=== PATIENT | male | born 1945 | race Caucasian/White ===

== ENCOUNTER 2019-07-12 12:35 | Inpatient (IN) ==
[2019-07-12 13:38] LABS: BASO# 0.09 X1000 (0.0-0.2); BASO% 1.1 % (0.0-0.8); EOS# 0.23 X1000 (0.0-0.7); EOS% 2.9 % (0.0-10.0); HEMOGLOBIN 15.8 g/dL (14.0-18.0); IMM GRAN# 0.03 X1000 (0.0-0.04); IMM GRAN% 0.4 % (0.0-0.5); LYMPH# 1.84 X1000 (1.2-3.4); MCH 30.9 PG (27-31); MCHC 34.3 g/dL (33-37); MCV 89.8 FL (81-99); MONO# 0.81 X1000 (0.11-0.59); MONO% 10.1 % (1.7-9.3); MPV 9.8 FL (7.4-10.4); NEUT# 4.99 X1000 (1.4-6.5); NEUT% 62.5 % (42.2-75.2); PLT 279 X1000 (130-400); RBC 5.12 XMIL (4.7-6.1); WBC 7.99 X1000 (4.8-10.8)
--- NOTE | 2019-07-12 13:47 | Diag Imaging Result Doc PS360 ---
EXAM: CHEST-2 VIEWS HISTORY: chest pain TECHNIQUE: Two views COMPARISON: None. FINDINGS: The lungs are well expanded. The heart is not enlarged. There are sternal wires. The vessels are not distended. There are no infiltrates. No pleural effusions. IMPRESSION: No acute abnormality. Electronically signed by Tal Muñoz 07/12/2019 1:45 PM
[2019-07-12 13:49] LABS: INR 1.02; PROTIME 13.5 Seconds (11.0-16.0)
[2019-07-12 13:50] LABS: PTT 27.8 Seconds (22.3-41.8)
[2019-07-12 14:00] LABS: AGAP 10; ALB/GLOB RATIO 1.5; ALBUMIN 4.3 g/dL (3.5-5.0); ALKALINE PHOSPHATASE 83 U/L (32-122); BUN 13 mg/dL (8-22); CALCIUM 9.7 mg/dL (8.8-10.2); CHLORIDE 104 mmol/L (98-107); CK PROFILE 80 U/L (24-204); COSMO 282; CREATININE 0.7 mg/dL (0.7-1.2); ESTIMATED GFR > 60; GLUCOSE 180 mg/dL (70-104); GOT 13 U/L (10-34); GPT 20 U/L (10-44); POTASSIUM 4.3 mmol/L (3.5-5.1); SODIUM 139 mmol/L (136-145); TCO2 25 mmol/L (25-35); TOTAL PROTEIN 7.1 g/dL (6.3-8.3)
--- NOTE | 2019-07-12 15:10 | PROVIDER DOCUMENTATION ---
HPI-General Adult - General Chief Complaint: Chest Pain Stated Complaint: CP HEART PT Time Seen by Provider: 07/12/19 13:16 Source: patient Allergies/Adverse Reactions: Patient Allergies Allergy/AdvReac Type Severity Reaction Status Date / Time No Known Allergies Allergy Verified 07/12/19 13:28 Home Medications: Home Medication List Medication Instructions Recorded Confirmed Last Taken Type Aspirin 800 mg PO BID 03/27/13 07/12/19 03/27/13 06:30 History Brinzolamide/Brimonidine Tart 8 ml OP BID 03/27/13 07/12/19 03/27/13 08:00 History [Simbrinza 1%-0.2% Eye Drops] Carvedilol [Coreg] 12.5 mg PO BID 03/27/13 07/12/19 03/27/13 06:30 History [employer]-3 Fatty Acids/Fish Oil [Cvs 1 each PO DAILY 03/27/13 07/12/19 03/23/13 08:00 History Fish Oil 1,200 mg Softgel] Valsartan [Diovan] 320 mg PO DAILY 03/27/13 07/12/19 03/27/13 06:30 History Levothyroxine [Synthroid] 75 microgm PO DAILY 07/12/19 07/12/19 Unknown History Metformin [Glucophage] 500 mg PO BID CC 07/12/19 07/12/19 Unknown History Simvastatin 1 tab PO QHS 07/12/19 07/12/19 Unknown History - History of Present Illness -Gen Adult Nature of Presenting Problems: THis is a 73 yo male with a h/o CAD, HTN and Atrial flutter. He underwent successful DCCV in for atrial flutter and denies a recurrence until today. He reports chest tightness, palpitations, shortness of breath and feeling weak and dizzy. He reports a HR in the 160s at this time. Pt reports taking 1825mg Aspirin prior to coming to ER - 825 mg daily am dose, then he chewed 500mg ASA with 1 NTG twice before coming to ER. Location of Pain/Injury: reports: none Review of Systems - Adult - REVIEW OF SYSTEMS - ADULT Constitutional: reports: no symptoms reported. denies: fever, fatique, night sweats Eyes: reports: no symptoms reported Ears, Nose, Mouth & Throat: reports: no symptoms reported Cardiovascular: reports: no symptoms reported, see HPI Respiratory: reports: no symptoms reported. denies: cough, pleurisy, shortness of breath, wheezing Gastrointestinal: reports: no symptoms reported. denies: abdominal pain, constipation, diarrhea, nausea, vomiting Genitourinary: reports: no symptoms reported Musculoskeletal: reports: no symptoms reported Integumentary: reports: no symptoms reported Neurological: reports: no symptoms reported Psychiatric: reports: no symptoms reported Endocrine: reports: no symptoms reported Hematologic/Lymphatic: reports: no symptoms reported Allergic/Immunologic: reports: no symptoms reported All Other Systems: Reviewed and Negative Past History - Adult - PAST MEDICAL HISTORY-ADULT Review of Records: reports: Old Records Reviewed, Nursing Assessment Review, Medications Reviewed, Social history reviewed & non-contributory. Major Childhood Illnesses: reports: denies history Cardiovascular: reports: CAD, HTN, [place] Respiratory: reports: denies history Gastrointestinal: reports: denies history Obstetrical/Gynecological: reports: denies history Genitourinary: reports: denies history Musculoskeletal: reports: denies history Neurological: reports: denies history Endocrine/Immune: reports: Diabetes, thyroid disorder Diabetes Type: Type 2 Other Conditions: reports: denies history - PRIOR SURGERIES/PROCEDURES Surgical/Procedure History: reports: CABG - IMMUNIZATION STATUS Childhood Immunizations: UTD, See Nurse Assessment Flu Vaccine: UTD - FAMILY HISTORY Family History: diabetes, HTN - SOCIAL HISTORY Smoking: quit greater than 1 year Substance Use: none/never Alcohol Use Frequency: never Living Situation: family Physical Exam-General - PHYSICAL EXAM-ADULT Initial Vital Signs Reviewed: Yes - CONSTITUTIONAL General Appearance: appears well, alert, no apparent distress - EYES Eyes: PERRL/EOMI, pink conjunctivae - HEAD, EARS, NOSE, MOUTH & THROAT HENMT: normocephalic/atraumatic, moist mucous membranes, normal ENT inspection - NECK Neck: non-tender, full range of motion, supple - RESPIRATORY Respiratory: chest non-tender, lungs clear, normal breath sounds - CARDIOVASCULAR Cardiovascular: normal peripheral pulses, regular rate, rhythm, no murmur - GASTROINTESTINAL (ABDOMEN) Abdominal Exam: normal bowel sounds, non tender, soft - MUSCULOSKELETAL Back Exam: no CVA tenderness, no vertebral tenderness Extremity: normal range of motion, non-tender, normal gait - NEUROLOGIC Neurologic: grossly normal - PSYCHIATRIC Psych/Mental Status: oriented x 3 Progress - PLAN OF CARE/RESULTS Progress/Plan/Lab Results: Vital Signs - 8 hr 07/12/19 12:50 Temperature 98.1 F Pulse Rate 93 H Respiratory Rate 18 Blood Pressure 163/77 O2 Sat by Pulse Oximetry 97 Laboratory Results - last 24 hr 07/12/19 07/12/19 07/12/19 13:30 13:30 13:30 WBC RBC Hgb Hct MCV MCH MCHC RDW Std Deviation Plt Count MPV Immature Gran % (Auto) Neut % (Auto) Lymph % (Auto) [place] % (Auto) Eos % (Auto) Baso % (Auto) Immature Gran # (Auto) Neut # (Auto) Lymph # (Auto) [place] # (Auto) Eos # (Auto) Baso # (Auto) PT INR PTT (Actin FS) Sodium 139 Potassium 4.3 Chloride 104 Carbon Dioxide 25 Anion Gap 10 BUN 13 Creatinine 0.7 Estimated GFR/1.73 m2 > 60 BUN/Creatinine Ratio 19 Glucose 180 H Calculated Osmolality 282 Calcium 9.7 Total Bilirubin 0.40 AST 13 ALT 20 Alkaline Phosphatase 83 Creatine Kinase 80 Troponin T High Sens 13 Bey-I-Hqcsopwkxck Pept 191 Total Protein 7.1 Albumin 4.3 Globulin 2.8 Albumin/Globulin Ratio 1.5 07/12/19 07/12/19 13:30 13:30 WBC 7.99 RBC 5.12 Hgb 15.8 Hct 46.0 MCV 89.8 MCH 30.9 MCHC 34.3 RDW Std Deviation 14.0 Plt Count 279 MPV 9.8 Immature Gran % (Auto) 0.4 Neut % (Auto) 62.5 Lymph % (Auto) 23.0 [place] % (Auto) 10.1 H Eos % (Auto) 2.9 Baso % (Auto) 1.1 H Immature Gran # (Auto) 0.03 Neut # (Auto) 4.99 Lymph # (Auto) 1.84 [place] # (Auto) 0.81 H Eos # (Auto) 0.23 Baso # (Auto) 0.09 PT 13.5 INR 1.02 PTT (Actin FS) 27.8 Sodium Potassium Chloride Carbon Dioxide Anion Gap BUN Creatinine Estimated GFR/1.73 m2 BUN/Creatinine Ratio Glucose Calculated Osmolality Calcium Total Bilirubin AST ALT Alkaline Phosphatase Creatine Kinase Troponin T High Sens Mem-W-Yyrlhluekdm Pept Total Protein Albumin Globulin Albumin/Globulin Ratio Orders Category Date Time Status Cardiac Monitoring DIRECTED Care 07/12/19 13:12 Active Saline Loc NOW Care 07/12/19 13:12 Active CHEST-2 VIEWS [RAD] Stat Exams 07/12/19 13:12 Completed CBC WITH ELECTRONIC DIFF [HEME] Stat Lab 07/12/19 13:30 Completed CK PROFILE [SP CHEM] Stat Lab 07/12/19 13:30 Completed COMPREHENSIVE METABOLIC PANEL [CHEM] Stat Lab 07/12/19 13:30 Completed PRO B-NATRIURETIC PEPTIDE Stat Lab 07/12/19 13:30 Completed PROTIME WITH INR [COAG] Stat Lab 07/12/19 13:30 Completed PTT [COAG] Stat Lab 07/12/19 13:30 Completed TROPONIN T HIGH SENSITIVITY Stat Lab 07/12/19 13:30 Completed TROPONIN T HIGH SENSITIVITY Stat Lab 07/12/19 16:30 Uncollected CP/SOB/Palp >45 yrs of Age Stat Oth 07/12/19 13:12 Ordered EKG [EKG] Stat Ther 07/12/19 13:12 Ordered Result Diagrams: 07/12/19 13:30 07/12/19 13:30 - XRAY 1 XRAY Study: Chest Impression: See EMR Report XRAY Interpretation: - CONSULTS/PCP/HOSPITALIST Notification #1 *Consult/PCP/Hospitalist*: Dr Calvo Time Discussed: 15:56 (DC coreg, start Sotalol. Admit to hospitalist ) Reason/Comments: Atrial Flutter #2 Consult: JAMI Oneill hospitalist Time Discussed: 15:58 Consult Disposition: Will see in ED Departure - Departure Date of Disposition Decision: 07/12/19 Time of Disposition Decision: 15:59 DIAGNOSIS: Atrial flutter Disposition: ADMITTED INPATIENT 09 Certified Medical Emergency: Emergent Condition: Good - Critical Care Note This patient required my direct & personal management of CC.: No Attestation - Physician/ SERINA Attestation Advanced Practice Provider:: Martine Martinez The physician spent face to face time with patient:: Yes Advanced Practice Provider documentation review:: Supervising physician onsite and consulted in the evaluation and care of this patient. The physician did have a face to face encounter with the patient.
--- NOTE | 2019-07-12 15:38 | EKG Report ---
Test Performed on : 07/12/2019 12:41:21 PM Test Reason : chest pain Blood Pressure : / mmHG Vent. Rate : 105 BPM Atrial Rate : 242 BPM P-R Int : 000 ms QRS Dur : 106 ms QT Int : 320 ms P-R-T Axes : 000 -21 -11 degrees QTc Int : 422 ms Atrial flutter. with variable AV block. Inferior infarct , age undetermined Abnormal ECG When compared with ECG of 27-MAR-2013 14:38, Atrial flutter. has replaced Sinus rhythm. Inferior infarct is now present T wave inversion more evident in Inferior leads Nonspecific T wave abnormality now evident in Lateral leads Unconfirmed Result
[2019-07-12] MEDS ORDERED: BETAPACE PO ONE (15:56)
[2019-07-12] MEDS ORDERED: NORCO-7.5 PO PRN (16:30)
[2019-07-12] MEDS ORDERED: TYLENOL PO PRN (16:30)
[2019-07-12] MEDS: LOVENOX SUBQ SCH (16:38)
--- NOTE | 2019-07-12 16:41 | EKG Report ---
Test Performed on : 07/12/2019 4:28:14 PM Test Reason : REPEAT Blood Pressure : / mmHG Vent. Rate : 087 BPM Atrial Rate : 261 BPM P-R Int : 000 ms QRS Dur : 108 ms QT Int : 324 ms P-R-T Axes : 000 -21 009 degrees QTc Int : 389 ms Atrial flutter. with variable AV block. with premature ventricular or aberrantly conducted complexes. Inferior infarct (cited on or before 04-JUN-2007) Abnormal ECG When compared with ECG of 12-JUL-2019 12:41, (Unconfirmed) Nonspecific T wave abnormality no longer evident in Lateral leads Unconfirmed Result
[2019-07-12] MEDS ORDERED: PROTONIX IV ONE (16:47)
[2019-07-12] MEDS ORDERED: PEPCID IV ONE (16:47)
[2019-07-12] MEDS ORDERED: SODIUM CHLORIDE 0.9% INJ ONE (16:47)
[2019-07-12 16:57] LABS: HEMOGLOBIN A1C 7.6 % (4.8-6.0)
[2019-07-12 17:03] LABS: FREE T4 1.06 ng/dL (0.93-1.70); TSH 0.91 uIUmL (0.27-4.20)
--- NOTE | 2019-07-12 17:29 | HISTORY AND PHYSICAL ---
PRIMARY CARE PROVIDER: Dr. Frank Watson. PRIMARY CLOUD ENGAGEMENT PARTNER: Dr. Jacob Calvo. CHIEF COMPLAINT: Palpitations with chest pressure. HISTORY OF PRESENT ILLNESS: Mr. Navid Crowe is a 73-year-old male with a medical history of atrial flutter whose last event was back in 2012 when he was cardioverted. He has not really had any events since then until a couple of months ago when he had some short spells where he felt palpitations. He was seen by Dr. Calvo, was placed on a 30 day heart monitor, which only showed one time where he had a 4 or 5 beat run of ventricular tachycardia or PVCs. He has been off that heart monitor for about a month now and today around 9 a.m. while preparing lunch in the kitchen he had lifted something out of the freezer that was around 20 pounds, and that is when he felt short of breath and some chest tightness with the pain being anywhere from 3 to 4 out of 10. He was dizzy, he felt tired and weak, denied any sweating or radiating of the discomfort, but also had felt palpitations along with it. When he calculated his heart rate with his portable blood pressure cuff he was running in from what he was reporting was the one teens. When he came in he was still continuing to run 90s to 100s. He has atrial flutter. The discomfort is much better, but prior to coming in he took 1000 mg of chewable aspirin, which he chewed. He also took 2 nitroglycerin, this helped some with the pain or discomfort. He also states that on a regular basis he takes 825 mg of aspirin in the morning and 825 mg of aspirin in the evening or at night, totaling a daily dose of 1650 mg, and he admits every time when he has these spells he takes 1000 mg of aspirin at that time as well. He denies any blood in his stool or urine. No signs or symptoms of excessive bleeding or bruising through the gums or the body. So we will admit him. Dr. Kiser has been notified of the patient's admission and there is possible plans for cardioversion on Sunday. In the meantime he will be started on weight-based Lovenox along with stopping Coreg and starting him on sotalol. PAST MEDICAL HISTORY: 1. Obstructive sleep apnea on CPAP. 2. Obesity with a BMI of 38.7. 3. Hypertension. 4. Hyperlipidemia. 5. Coronary artery disease with a myocardial infarction in 2002 where he had 2 stents, another myocardial infarction in 2007 where he had coronary artery bypass grafting x2. 6. Hypothyroidism. 7. Arthritis. 8. GERD. 9. Atrial flutter with cardioversion in 2013. 10. Diabetes mellitus type 2. 11. 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 SURGICAL HISTORY: 1. Two cardiac stents in 2002. 2. CABG x2 here at [facility] in 2007. 3. DCCV or cardioversion in 2013 for atrial flutter. 4. Bilateral knee replacements. SOCIAL HISTORY: He quit smoking at least 46 years ago, he only had a 4 year stent of smoking when he was much younger. Denies any illicit drug use. He drinks alcohol about twice a month. He is . He is retired from [email or web address]. He has grandchildren, 2 adult children. FAMILY HISTORY: Mother no medical conditions. Father from a cerebral aneurysm bleed at the age of 57, and he has a uncle who at the age of 64 from a myocardial infarction. ALLERGIES: No known drug allergies. HOME MEDICATIONS: Not yet reconciled. REVIEW OF SYSTEMS: Fourteen point review of systems are complete and all are negative except for those mentioned above in the HPI. Denies fever or chills. PHYSICAL EXAMINATION: VITAL SIGNS: Temperature 98.1 degrees, heart rate 97, respiratory rate 18, blood pressure 121/72, O2 saturation is 98% on room air. GENERAL: Mr. Navid Crowe is a 73-year-old male. He is in no acute distress. He is able to answer questions appropriately. HEENT: Atraumatic and normocephalic. Pupils are equal, round and reactive to light. Extraocular movements are intact. Mucous membranes are moist. NECK: Trachea midline. CARDIOVASCULAR: Irregularly irregular. Sometimes is tachycardic, but mostly a normal rate. No rubs, gallops or murmurs. No lower extremity edema. +2 dorsalis and radial pulses. Negative for JVD and carotid bruits. PULMONARY: Clear to auscultation. Bilateral breath sounds. No accessory muscle use or work of breathing noted. GASTROINTESTINAL: Soft, nontender, nondistended. Positive bowel sounds x4. EXTREMITIES: Moves all extremities equally. Full range of motion. NEUROLOGIC: A and O x3. Follows commands. Sensory is intact. SKIN: Warm, dry, intact. LABORATORY DATA: White blood cells 7000, hemoglobin 15, hematocrit 46, platelet count 279,000. INR is 1.02, PTT is 27.8. Sodium 139, potassium 4.3, BUN 13, creatinine 0.7, glucose 180, calcium 9.7, bilirubin 0.40, AST 13, ALT 20, CK 80, troponin is 13. ProBNP is 191. Albumin is 4.3. IMAGING: Chest x-ray, no acute findings. EKG, atrial flutter, rate 105. ASSESSMENT AND PLAN: 1. Atrial flutter with RVR with chest pressure and chest pain. First set of cardiac enzymes are negative. Rate is somewhat controlled. He is on Coreg at home; however, with the chest discomfort and the fact that he is in flutter where he has not been he is going to be switched from Coreg to sotalol per Dr. Calvo. We will also do weight-based Lovenox. We will hold off on the aspirin. He has taken excessive amounts of aspirin at this time, and I believe the plan will be for possible cardioversion on Sunday. 2. Excessive aspirin consumption. We will do a salicylate level, we will do it daily for the next 3 days, but there is no signs or symptoms of bleeding at this time. Hemoglobin and hematocrit are stable but will need to continue to monitor as he will be on weight-based Lovenox. 3. Chest pain with history of CAD, CABG and stents. He has been on aspirin, but he has been taking large doses, we will hold off on that for now. His beta nena has been changed to sotalol from Coreg, and we are waiting on home medications to be reconciled to see if he is on a statin. We will do serial cardiac enzymes. 4. Diabetes mellitus type 2 with mild hyperglycemia. We will do pattern blood glucoses, sliding scale insulin, diabetic diet. 5. Hypothyroidism. Once home medications are reconciled we will resume Synthroid. 6. Gastroesophageal reflux disease. We will do Prilosec twice a day. 7. Obstructive sleep apnea. We will allow him to use his home CPAP. 8. Hypertension. Sotalol is been started, but blood pressure is actually stable at this time. Dictated by CHAITANYA Benton for Libertad Martin MD cc: CHAITANYA Benton MD
[2019-07-12 17:37] LABS: UR AMPHETAMINES QUAL NONE DETECTED (NONE DETECT); UR BARBITUATES QUAL NONE DETECTED (NONE DETECT); UR BENZODIAZEPIN QUAL NONE DETECTED (NONE DETECT); UR CANNABINOIDS QUAL NONE DETECTED (NONE DETECT); UR COCAINE QUAL NONE DETECTED (NONE DETECT); UR METHADONE QUAL NONE DETECTED (NONE DETECT); UR OPIATES QUAL NONE DETECTED (NONE DETECT); UR OXYCODONE QUAL NONE DETECTED (NONE DETECT); UR PCP QUAL NONE DETECTED (NONE DETECT)
[2019-07-12] MEDS: SODIUM CHLORIDE 0.9% INJ ONE (17:46)
[2019-07-12] MEDS: HUMULIN R SUBQ SCH (21:09)
[2019-07-12] MEDS: PRILOSEC PO SCH (21:12)
--- NOTE | 2019-07-12 22:12 | CONSULTATION ---
DATE OF CONSULTATION: 07/12/2019 IMPRESSION: 1. Recurrent atrial flutter. 2. Atherosclerotic coronary disease with previous coronary angioplasty/stenting in 2002 and coronary bypass grafting in 2007. 3. Hypertension. 4. Hyperlipidemia. 5. Type 2 diabetes mellitus. 6. Right eye stroke in the past more than 10 years ago. RECOMMENDATIONS: 1. Initiate anticoagulation with Lovenox. 2. Discontinue carvedilol, initiate sotalol 80 mg p.o. b.i.d. 3. If atrial flutter persists, consider BIANCA cardioversion Sunday. 4. Reassessment of coronary atherosclerosis with Lexiscan sestamibi study as an outpatient. 5. Ultimately patient would likely benefit from ablation of atrial flutter which can be arranged electively in the near future. HISTORY: This 73-year-old white male with past history of previous atrial flutter in 2013 requiring cardioversion, atherosclerotic coronary disease, hypertension, hyperlipidemia, previous right eye stroke more than 10 years ago, and type 2 diabetes mellitus was admitted through the emergency room with recurrence of atrial flutter. Approximately 6 weeks ago he had episode of tachycardia with some associated palpitations and mild chest tightness. This lasted perhaps an hour, resolved spontaneously. He had another episode a week or so later. He subsequently had evaluation with event recorder during which had no recurrence of his symptoms. He also had echocardiography. His event recorder did not demonstrate any recurrence of atrial flutter or atrial fibrillation. He had some brief palpitations earlier this week. This morning around 9 a.m. he started having tachycardia and associated palpitations with mild chest tightness particularly when he got up and walked around. He also experienced shortness of breath with physical activity. Symptoms persisted and he came to the emergency room for evaluation. He was found to be in atrial flutter. His heart rate has only been mildly elevated to around 120 and currently is less than 100 beats per minute. He relates the chest tightness tends to occur with physical activity along with shortness of breath and that his chest tightness is relatively mild but noticeable. PAST MEDICAL HISTORY: 1. Atherosclerotic coronary disease with previous coronary angioplasty/stent in 2002 and coronary bypass grafting in 2007. 2. Previous atrial flutter in 2013 requiring cardioversion. 3. Right eye stroke x2 more than 10 years ago. 4. Type 2 diabetes mellitus. 5. Hypertension. 6. Hyperlipidemia. 7. Obesity. 8. Gastroesophageal reflux. 9. Previous atrial flutter requiring cardioversion 2012. PAST SURGICAL HISTORY: Also includes bilateral knee replacements. ALLERGIES: He has no known drug allergies. MEDICATIONS PRIOR TO ADMISSION: As listed. SOCIAL HISTORY: He quit smoking more than 40 years ago. He drinks infrequent alcoholic beverage. He is . 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 FAMILY HISTORY: Positive for coronary disease. REVIEW OF SYSTEMS: Pulmonary: Noncontributory beyond history of present illness. Gastrointestinal: Noncontributory beyond history of present illness. Constitutional: Noncontributory beyond history of present illness. Remainder review of systems negative/noncontributory beyond history present illness with 14 total systems reviewed. PHYSICAL EXAMINATION: General: This is an obese, older white male in no distress. Vital signs: Blood pressure 160/100, heart rate 100, oxygen saturation 97% on room air. HEENT: Extraocular movements intact. Mucous membranes are moist. Neck: Supple without jugular venous distention. There are no carotid bruits. Chest: Clear to auscultation bilaterally. Cardiac Exam: Reveals a irregular rate and rhythm without appreciable murmur or gallop. Abdomen: Soft. Bowel sounds are normal. Extremities: With trace edema bilaterally and some chronic venous stasis changes. Neurologic: Reveals him to be alert and fully oriented. Speech is fluent. Moves all 4 extremities equally well. Skin: Warm, dry. Psychiatric: Reveals mood to be appropriate. DATA: A 12-lead EKG demonstrates atrial flutter with variable AV block and heart rate of 87 beats per minute and inferior infarct of undetermined age. LABORATORY DATA: Includes a white blood cell count 7.99, hematocrit 46.0, hemoglobin 15.8, platelet count 279,000. Sodium 139, potassium 4.3, chloride 104, carbon dioxide 25, BUN 13, creatinine 0.7, glucose 180, magnesium 1.8. Troponin T high sensitivity 16, CPK 80. Free T4 1.06, TSH 0.91. cc: Jacob Calvo MD
[2019-07-13] MEDS: SYNTHROID PO SCH ×3 (05:57→08:30)
[2019-07-13] MEDS: PRILOSEC PO SCH ×3 (05:57→20:18)
[2019-07-13] MEDS: HUMULIN R SUBQ SCH ×4 (06:07→20:19)
[2019-07-13 06:18] LABS: BASO# 0.05 X1000 (0.0-0.2); BASO% 0.6 % (0.0-0.8); EOS# 0.19 X1000 (0.0-0.7); EOS% 2.4 % (0.0-10.0); HEMOGLOBIN 15.4 g/dL (14.0-18.0); IMM GRAN# 0.03 X1000 (0.0-0.04); IMM GRAN% 0.4 % (0.0-0.5); LYMPH# 1.97 X1000 (1.2-3.4); MCHC 34.2 g/dL (33-37); MCV 90.7 FL (81-99); MONO# 0.82 X1000 (0.11-0.59); MONO% 10.4 % (1.7-9.3); MPV 10.1 FL (7.4-10.4); NEUT# 4.82 X1000 (1.4-6.5); NEUT% 61.2 % (42.2-75.2); PLT 276 X1000 (130-400); RBC 4.96 XMIL (4.7-6.1); RDW 14.2 % (11.5-14.5); WBC 7.88 X1000 (4.8-10.8)
[2019-07-13 07:03] LABS: AGAP 11; ALB/GLOB RATIO 1.5; ALBUMIN 3.9 g/dL (3.5-5.0); ALKALINE PHOSPHATASE 71 U/L (32-122); BUN 12 mg/dL (8-22); CALCIUM 9.6 mg/dL (8.8-10.2); CHLORIDE 104 mmol/L (98-107); COSMO 283; CREATININE 0.9 mg/dL (0.7-1.2); ESTIMATED GFR > 60; GLUCOSE 163 mg/dL (70-104); GOT 15 U/L (10-34); GPT 21 U/L (10-44); MAGNESIUM 1.7 mg/dL (1.5-2.7); POTASSIUM 4.3 mmol/L (3.5-5.1); SALICYLATES < 3.00 mg/dL (3-10); SODIUM 140 mmol/L (136-145); TCO2 25 mmol/L (25-35); TOTAL BILIRUBIN 0.53 mg/dL (0.20-1.00); TOTAL PROTEIN 6.5 g/dL (6.3-8.3)
[2019-07-13 07:22] LABS: ALLEN TEST YES; BE -1.6 mmoll (-3.0-3.0); BLOOD TYPE ARTERIAL; HCO3-(ACT) 23.6 mmoll (20.0-26.0); METHB 0.9 % (0.0-1.5); O2(CT) 22.1 mL/dL (15.0-23.0); O2HB 96.8 % (95.0-99.0); PCO2(98.6) 34 mmHg (35-45); PO2(98.6) 108 mmHg (60-100); SAMPLE BLOOD; SAO2 99.4 % (95.0-100.0); THB 16.2 g/dL (11.5-17.4); pH(98.6) 7.42 (7.35-7.45)
[2019-07-13 07:23] LABS: MODALITY ROOM AIR
[2019-07-13] MEDS: LOVENOX SUBQ SCH ×2 (08:30→20:18)
[2019-07-13] MEDS: ASPIRIN PO SCH (08:30)
[2019-07-13] MEDS: BETAPACE PO SCH ×2 (08:30→20:18)
--- NOTE | 2019-07-13 10:13 | EKG Report ---
Test Performed on : 07/13/2019 06:53:15 AM Test Reason : chest pain Blood Pressure : / mmHG Vent. Rate : 100 BPM Atrial Rate : 256 BPM P-R Int : 000 ms QRS Dur : 106 ms QT Int : 356 ms P-R-T Axes : 000 -25 018 degrees QTc Int : 459 ms Atrial flutter. with variable AV block. Inferior infarct (cited on or before 04-JUN-2007) Abnormal ECG When compared with ECG of 12-JUL-2019 16:28, (Unconfirmed) QT has lengthened Confirmed by Raghavendra Vasques MD ([id number]) on 07/13/2019 5:03:39 PM
--- NOTE | 2019-07-13 16:37 | PROGRESS NOTE ---
DATE: 07/13/2019 SUBJECTIVE: Patient continues without chest discomfort, shortness of breath, or palpitations presently. He continues on room air. He continues in atrial flutter with controlled rate. OBJECTIVE: Vital signs: Blood pressure 119/97, heart rate 98, oxygen saturation 98% on room air. Neck: There is no significant jugular venous distention. Chest: Clear to auscultation. Cardiac Exam: Reveals an irregular rate and rhythm without appreciable murmur or gallop. There is no evidence of peripheral edema. LABORATORY DATA: Includes white blood cell count of 7.8, hematocrit 45.0, hemoglobin 15.4, platelet count 276,000. Sodium 140, potassium 4.3, chloride 104, carbon dioxide 25, BUN 12, creatinine 0.9, glucose 163. Twelve lead EKG demonstrates atrial flutter with variable ventricular response and heart rate of 100. Inferior infarct of undetermined age demonstrated. IMPRESSIONS: 1. Persistent atrial flutter with controlled rate. Patient had a previous episode of atrial flutter in 2012. 2. Atherosclerotic coronary disease with history of previous coronary bypass grafting. Patient continues without significant angina, although he has had some low-grade chest tightness with activity while he has been in atrial flutter. 3. Hypertension. 4. Hyperlipidemia. 5. Type 2 diabetes mellitus. 6. History of previous right eye stroke x2 which left him with a 40% vision loss. RECOMMENDATIONS: 1. Continue sotalol 80 mg p.o. b.i.d. 2. If atrial flutter persists pursue BIANCA cardioversion in a.m. This was discussed with the patient including the potential hazards and he wished to proceed. 3. Once sinus rhythm reestablished tomorrow, it would be reasonable for patient to be discharged to home to have further evaluation and management with outpatient Lexiscan sestamibi study and electrophysiology consultation for possible future ablation of his atrial flutter. cc: Jacob Calvo MD
--- NOTE | 2019-07-13 19:01 | PROGRESS NOTE ---
DATE: 07/13/2019 SUBJECTIVE: The patient is resting comfortably in bed. No acute events noted overnight. OBJECTIVE: Vital Signs: Temperature 98.5 degrees, blood pressure 119/97, heart rate 98, respirations 18, O2 saturation is 97% on room air. General: This is a chronically ill-appearing, elderly male lying in bed, in no acute distress. Heart: S1, S2 normal. Regular rate and rhythm. Lungs: Equal air entry bilaterally. No wheezing. No rales. Abdomen: Positive bowel sounds. Soft, nontender, nondistended. Extremities: No edema. No cyanosis. Neurologic: The patient is alert and oriented x3. LABS: Reviewed. ASSESSMENT AND PLAN: 1. Atrial flutter. The patient is scheduled to undergo a BIANCA with cardioversion tomorrow. 2. History of cerebrovascular accident x2. Aware. Continue on aspirin. 3. Coronary artery disease status post coronary artery bypass graft. Continue on the current cardiac medications. 4. Morbid obesity. Aware. 5. Obstructive sleep apnea. Continue with CPAP at night. 6. Diabetes mellitus type 2. Continue on sliding scale insulin. 7. Hypothyroidism. Continue on Synthroid. cc: Libertad Martin MD
[2019-07-13] MEDS: NORVASC PO SCH ×2 (20:18→22:17)
[2019-07-14 05:32] LABS: BASO# 0.06 X1000 (0.0-0.2); BASO% 0.7 % (0.0-0.8); EOS# 0.23 X1000 (0.0-0.7); EOS% 2.9 % (0.0-10.0); HEMATOCRIT 44.9 % (42.0-52.0); HEMOGLOBIN 15.7 g/dL (14.0-18.0); IMM GRAN# 0.02 X1000 (0.0-0.04); IMM GRAN% 0.2 % (0.0-0.5); LYMPH# 1.86 X1000 (1.2-3.4); LYMPH% 23.2 % (20.5-51.1); MCH 31.5 PG (27-31); MCV 90.2 FL (81-99); MONO# 0.99 X1000 (0.11-0.59); MONO% 12.3 % (1.7-9.3); MPV 9.6 FL (7.4-10.4); NEUT# 4.87 X1000 (1.4-6.5); NEUT% 60.7 % (42.2-75.2); PLT 270 X1000 (130-400); RBC 4.98 XMIL (4.7-6.1); RDW 14.4 % (11.5-14.5); WBC 8.03 X1000 (4.8-10.8)
[2019-07-14 05:53] LABS: AGAP 12; ALB/GLOB RATIO 1.5; ALBUMIN 3.9 g/dL (3.5-5.0); ALKALINE PHOSPHATASE 69 U/L (32-122); BUN 13 mg/dL (8-22); CALCIUM 9.4 mg/dL (8.8-10.2); CHLORIDE 103 mmol/L (98-107); COSMO 281; CREATININE 0.8 mg/dL (0.7-1.2); ESTIMATED GFR > 60; GLUCOSE 155 mg/dL (70-104); GOT 13 U/L (10-34); GPT 19 U/L (10-44); MAGNESIUM 1.7 mg/dL (1.5-2.7); POTASSIUM 4.2 mmol/L (3.5-5.1); SALICYLATES < 3.00 mg/dL (3-10); SODIUM 139 mmol/L (136-145); TCO2 24 mmol/L (25-35); TOTAL BILIRUBIN 0.62 mg/dL (0.20-1.00); TOTAL PROTEIN 6.5 g/dL (6.3-8.3)
[2019-07-14] MEDS: PRILOSEC PO SCH (06:08)
[2019-07-14] MEDS: HUMULIN R SUBQ SCH ×3 (06:09→17:08)
[2019-07-14] MEDS: NORVASC PO SCH (08:12)
[2019-07-14] MEDS: BETAPACE PO SCH (08:12)
[2019-07-14] MEDS: SYNTHROID PO SCH (08:12)
[2019-07-14] MEDS: ASPIRIN PO SCH (08:12)
[2019-07-14] MEDS: LOVENOX SUBQ SCH (08:12)
--- NOTE | 2019-07-14 10:10 | EKG Report ---
Test Performed on : 07/14/2019 08:23:36 AM Test Reason : aflutter Blood Pressure : / mmHG Vent. Rate : 087 BPM Atrial Rate : 258 BPM P-R Int : 000 ms QRS Dur : 106 ms QT Int : 428 ms P-R-T Axes : 088 -05 036 degrees QTc Int : 515 ms Atrial flutter. with variable AV block. Nonspecific ST abnormality Prolonged QT Abnormal ECG When compared with ECG of 13-JUL-2019 06:53, No significant change was found Confirmed by Raghavendra Vasques MD ([id number]) on 07/16/2019 3:21:59 PM
[2019-07-14] MEDS ORDERED: DIPRIVAN 1% ONE (12:27)
[2019-07-14] MEDS ORDERED: XYLOCAINE 2% VISCOUS ONE (12:50)
[2019-07-14] MEDS ORDERED: XYLOCAINE 4% TOPICAL SOLUTION ONE (12:50)
[2019-07-14] MEDS ORDERED: ANESTHESIA PB SET 88 IN 5742 ONE (13:05)
[2019-07-14] MEDS ORDERED: CLAVE TWINSITE 32 IN 11959 ONE (13:05)
[2019-07-14] MEDS ORDERED: NS 1,000 ML ONE (13:05)
[2019-07-14] MEDS ORDERED: XYLOCAINE-MPF 2% ONE (13:51)
--- NOTE | 2019-07-14 14:09 | ECHO REPORT ---
ORDER DATE: 07/14/2019 STUDY: Transesophageal echocardiogram. INDICATION: Persistent atrial flutter. Rule out thrombus. DESCRIPTION: The patient was consented by Dr. Calvo. He was brought to the cardiac catheterization lab. Intravenous propofol was administered. Once the patient was sedated, and after he had been anesthetized with Hurricaine and viscous lidocaine, the esophagus was intubated easily. Multiple views of the heart were obtained. The following is a summary of the findings: 1. Left atrium and appendage are free of thrombus. Good velocities within the left atrial appendage. There is evidence of a patent foramen ovale with evidence of right to left shunting of bubbles. 2. The tricuspid valve is normal. Color flow mapping indicates trace of regurgitation. 3. The left ventricle shows slightly decreased systolic function with ejection fraction of 50%. 4. The aortic valve has three cusps, they open normally. Color flow mapping unremarkable. The aortic root is normal. 5. The mitral valve shows a mild degree of regurgitation. 6. The pulmonic valve is unremarkable. Pulse wave Doppler of pulmonary venous flow is abnormal because of atrial flutter. 7. The descending thoracic aorta shows occasional scattered patches of plaque. No mobile debris or elucidation. SUMMARY: The transesophageal echocardiogram is negative for the presence of thrombus. No contraindication for proceeding with cardioversion. cc: MD Jacob Champion MD
--- NOTE | 2019-07-14 14:14 | CARDIAC CATH REPORT ---
DATE: 07/14/2019 PROCEDURE PERFORMED: Direct current cardioversion. PROCEDURE INDICATION: Atrial flutter. HISTORY: The patient was consented for BIANCA and cardioversion. He was brought to the cardiac catheterization lab. A BIANCA was performed first and no thrombus was noted. He was deemed to be safe for cardioversion. DESCRIPTION: The pads were positioned in anterior and posterior location. Under the effect of propofol, he received a single synchronized countershock to the chest cage consisting of 75 bennett per second. (Biphasic system used) . The patient woke up from the effects of the anesthesia. He converted to sinus rhythm. No complications took place. SUMMARY: This is a successful cardioversion from atrial flutter into sinus rhythm. RECOMMENDATIONS: Continue present medical therapy and follow up per Dr. Calvo's instructions. cc: Juan Antonio Tobin MD MTDD
[2019-07-14] MEDS ORDERED: NS 1,000 ML IV SCH (14:15)
--- NOTE | 2019-07-14 14:24 | PROGRESS NOTE ---
DATE: 07/14/2019 SUBJECTIVE: Patient had BIANCA cardioversion and is back in sinus rhythm. He is presently asymptomatic from a cardiovascular standpoint. OBJECTIVE: Vital Signs: Blood pressure 130/85, heart rate 64 and regular. Oxygen saturation 100%. Neck: There is no significant jugular venous distention. Chest: Clear to auscultation. Cardiac Exam: Reveals a regular rate and rhythm without appreciable murmur or gallop. Extremities: There is no evidence of peripheral edema. LABORATORY DATA: Includes a white blood cell count 8.03, hematocrit 44.9, hemoglobin 15.7, platelet count 270. Sodium 139, potassium 4.2, chloride 103, carbon dioxide 24. BUN 13, creatinine 0.8, glucose 155. IMAGING STUDIES: Twelve lead EKG performed this morning prior to BIANCA cardioversion demonstrates atrial flutter with variable AV conduction. IMPRESSION: 1. Recurrent atrial flutter. Patient now status post transesophageal echocardiogram cardioversion and remains in sinus rhythm on sotalol. 2. Atherosclerotic coronary disease with history of previous coronary bypass grafting. He has had some low-grade chest tightness with activity while he has been in atrial flutter. 3. Hypertension. 4. Hyperlipidemia. 5. Type 2 diabetes mellitus. 6. 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 RECOMMENDATIONS: 1. Continue sotalol 80 mg p.o. b.i.d. 2. Repeat ECG post cardioversion. 3. Continue anticoagulation with Eliquis 5 mg p.o. b.i.d. 4. Reasonable for patient to be discharged this evening. He will have outpatient Lexiscan sestamibi study and arrangements to be made for outpatient electrophysiology/arrhythmia consultation to consider possible future ablation of atrial flutter. I will be glad to see him back in the office in 1 week. cc: Jacob Calvo MD
--- NOTE | 2019-07-14 16:19 | EKG Report ---
Test Performed on : 07/14/2019 4:05:58 PM Test Reason : s/p cvn Blood Pressure : / mmHG Vent. Rate : 058 BPM Atrial Rate : 058 BPM P-R Int : 186 ms QRS Dur : 108 ms QT Int : 422 ms P-R-T Axes : 045 -24 -01 degrees QTc Int : 414 ms Sinus bradycardia. Inferior infarct , age undetermined Abnormal ECG When compared with ECG of 14-JUL-2019 08:23, (Unconfirmed) Sinus rhythm. has replaced Atrial flutter. Vent. rate has decreased BY 29 BPM Inferior infarct is now present ST no longer elevated in Inferior leads QT has shortened Confirmed by Raghavendra Vasques MD ([id number]) on 07/16/2019 3:27:10 PM
[2019-07-14 17:02] VITALS: BP 129/78
--- NOTE | 2019-07-14 17:14 | PROGRESS NOTE ---
DATE: 07/14/2019 SUBJECTIVE: The patient is resting comfortably in bed. No acute events noted overnight. OBJECTIVE: Vital Signs: Temperature 98.7 degrees, blood pressure 121/94, heart rate 62, respirations 20, O2 saturation is 100% on room air. General: This is a morbidly obese male sitting in bed, in no acute distress. Heart: S1, S2 normal. Regular rate and rhythm. Lungs: Equal air entry bilaterally. No wheezing. No rales. Abdomen: Positive bowel sounds. Soft, obese, nontender, nondistended. Extremities: No edema, no cyanosis. Neurologic: The patient is alert and oriented x3. Labs: Sodium 139, potassium 4.2, chloride 103, CO2 of 24, BUN 13, creatinine 0.8, glucose 155. AST 13, ALT 19, alkaline phosphatase 69. ASSESSMENT AND PLAN: 1. Atrial flutter, status post transesophageal echocardiogram with cardioversion. The patient is now in normal sinus rhythm. Further management as per the beam worker. 2. Morbid obesity. Aware. 3. History of cerebrovascular accident x2. Aware. Continue on aspirin. 4. Coronary artery disease, status post coronary artery bypass graft. Continue on the current cardiac medications. 5. Obstructive sleep apnea. Continue with CPAP at night. 6. Hypothyroidism. Continue on Synthroid. 7. Diabetes mellitus type 2. Continue on sliding scale insulin. 8. Disposition. The patient can be discharged home once cleared by the beam worker. cc: Libertad Martin MD
[2019-07-14] MEDS ORDERED: ELIQUIS PO SCH (21:00)
--- NOTE | 2019-07-20 18:05 | DISCHARGE SUMMARY ---
ADMISSION DATE: 07/12/2019 DISCHARGE DATE: 07/14/2019 FINAL DISCHARGE DIAGNOSES: 1. Atrial flutter status post transesophageal echocardiogram with cardioversion. 2. Morbid obesity. 3. History of cerebrovascular accident x2. 4. Coronary artery disease status post coronary artery bypass graft. 5. Obstructive sleep apnea. 6. Hypothyroidism. 7. Diabetes mellitus type 2. 8. Hypertension. CONSULTATIONS: Cardiology consultation with Dr. Calvo. PROCEDURES: A BIANCA with cardioversion performed on 07/14/2019. HOSPITAL COURSE: Mr. Crowe is a 73-year-old male with a history of multiple medical problems who presented to the ER with a chief complaint of palpitations. Upon further assessment the patient was noted to be in atrial flutter. The patient was started on a Cardizem drip and transferred to [facility] and Cardiology was then consulted. The patient was started on rate control medications. However, he remained in atrial flutter. The decision was made for the patient to be taken for a BIANCA with cardioversion. The patient underwent the procedure on 07/14/2019. Following the cardioversion, the patient was noted to be in normal sinus rhythm. Adjustments were made to the patient's cardiac regimen and the patient was ultimately cleared for discharge home. DISCHARGE MEDICATIONS: 1. Sotalol 80 mg oral twice a day. 2. Eliquis 5 mg oral twice a day. 3. Prilosec 40 mg oral daily. 4. Ey[place]-3 fatty acid 1 tablet oral daily. 5. Diovan 320 mg oral daily. 6. Metformin 500 mg oral twice a day. 7. Synthroid 75 mcg oral daily. 8. Simvastatin one tablet oral at bedtime. DISCHARGE DIET: Low-sodium diet. ACTIVITY: As tolerated. FOLLOWUP INSTRUCTIONS: The patient will need to follow up with Dr. Calvo in as scheduled by his clinic. cc: Libertad Martin MD
--- NOTE | 2019-07-21 07:24 | DISCHARGE SUMMARY ---
ADMISSION DATE: 07/12/2019 DISCHARGE DATE: 07/14/2019 ADDENDUM: DISCHARGE MEDICATIONS: 1. Aspirin 81 mg oral daily. This prescription was called in to [facility] in [place], [place]. cc: Libertad Martin MD
== END 2019-07-14 18:16 | disposition home or self-care (01) | DRG 310 ==
LOC: ED 12:35 → 2N 16:49
PROVIDERS: ATTEND Internal Medicine